=== PATIENT | female | born 1965 | race Caucasian/White ===

== ENCOUNTER → 2018-04-10 10:41 | Outpatient (CLI) | payer OTHER, SELFPAY ==
--- NOTE | 2018-04-10 | DI.MG.S_ITS ---
BILATERAL DIGITAL SCREENING MAMMOGRAM 3D/2D WITH CAD: 04/10/2018 CLINICAL: Routine screening. Family history of breast cancer. Comparison is made to exams dated: 07/14/2016 mammogram, 07/14/2015 mammogram, and 12/30/2014 mammogram - [facility]. The tissue of both breasts is heterogeneously dense. This may lower the sensitivity of mammography. Current study was also evaluated with a Computer Aided Detection (CAD) system. No significant masses, calcifications, or other findings are seen in either breast. There has been no significant interval change. IMPRESSION: NEGATIVE There is no mammographic evidence of malignancy. A 1 year screening mammogram is recommended. This exam was interpreted at Station ID: [id number]. NOTE: For mammograms, a report in lay terms will be sent to the patient. Approximately 15% of breast malignancies will not be visualized mammographically. In the management of a palpable breast mass, a negative mammogram must not discourage biopsy of a clinically suspicious lesion. Electronically Signed By: Leydi benton/jasson:04/10/2018 12:22:09 letter sent: Normal Exam ACR BI-RADS Category 1: Negative 3341F
== END ==
PROVIDERS: Visit Provider Family Medicine
DX: Z12.31 Encounter for screening mammogram for malignant neoplasm of breast (principal); Z80.3 Family history of malignant neoplasm of breast
CPT/HCPCS: 77063; 77067

== ENCOUNTER → 2018-06-28 15:20 | Outpatient (CLI) | payer OTHER, SELFPAY ==
--- NOTE | 2018-06-28 | DI.RAD.S_ITS ---
PROCEDURE: XR CHEST 2V INDICATIONS: Localized enlarged lymph nodes TECHNIQUE: 2 views of the chest were acquired. COMPARISON: None. FINDINGS: Surgical changes and devices: None. Lungs and pleura: No pleural effusions or pneumothorax. Lungs are clear. Mediastinum: Mediastinal contours are normal. Heart size is normal. Bones and chest wall: No suspicious bony abnormalities. Soft tissues appear unremarkable. IMPRESSION: No acute disease. Dictated by: Remigio Morrison M.D. on 06/28/2018 at 16:52 Approved by: Remigio Morrison M.D. on 06/28/2018 at 16:53
== END ==
PROVIDERS: PCP Family Medicine; Visit Provider Family Medicine
DX: R59.0 Localized enlarged lymph nodes (principal)
CPT/HCPCS: 71046

== ENCOUNTER → 2018-07-02 15:34 | Outpatient (CLI) | payer OTHER, SELFPAY ==
--- NOTE | 2018-07-02 | DI.CT.S_ITS ---
PROCEDURE: CT CHEST W CON INDICATIONS: Left sided CERVICAL LYMPHADENOPATHY TECHNIQUE: After the administration of intravenous contrast, 5 mm thick sections acquired from the pulmonary apices to the posterior costophrenic angles. 7 mm thick coronal and sagittal MIP reformats were acquired. For radiation dose reduction, the following was used: automated exposure control, adjustment of mA and/or kV according to patient size. COMPARISON: [facility], CT, CT SOFT TISSUE NECK W CON, 07/02/2018, 15:53. FINDINGS: Image quality: Excellent. Lungs and pleura: No acute air space opacities. No pleural effusions or pneumothorax. Central and peripheral airways are patent and normal in caliber. Mediastinum: Heart size is normal. No pericardial effusion. No mediastinal or hilar adenopathy by size criteria. Thoracic aorta and central pulmonary arteries are normal in size. Esophagus is normal in caliber. No hiatal hernia. Bones and chest wall: No suspicious bony lesions. No vertebral body compression fractures. There is bilateral axillary and left supraclavicular mild adenopathy by size criteria, with the maximal diameter of enlarged lymph nodes measuring up to 1.5 cm in short axis dimension, at the axillary areas. Thyroid gland appears normal where well visualized. Abdomen: Visualized upper abdominal solid organs appear normal. Note is made of several scattered water density cyst within the liver parenchyma. Upper abdominal bowel loops are normal in caliber. IMPRESSION: Shoddy adenopathy is present in each axilla and within the left supraclavicular fossa, in this patient with reported left cervical lymph adenopathy. No mediastinal or hilar adenopathy is found, however. No lung mass is present. Within the visualized upper abdomen scattered hepatic simple cysts are seen and no adenopathy is found. Dictated by: Keith Will M.D. on 07/02/2018 at 17:10 Approved by: Keith Will M.D. on 07/02/2018 at 17:15
--- NOTE | 2018-07-02 | DI.CT.S_ITS ---
PROCEDURE: CT SOFT TISSUE NECK W CON INDICATIONS: LEFT SIDED CERVICAL LYMPHADENOPATHY TECHNIQUE: After the administration of intravenous contrast, 3.0 mm axial sections acquired from the sella to the aortic arch. Additional oblique axial 3.0 mm sections acquired through the pharynx. 3 mm thick coronal and sagittal reformats were generated. For radiation dose reduction, the following was used: automated exposure control. COMPARISON: [facility], CT, CT CHEST W CON, 07/02/2018, 15:53. FINDINGS: Image quality: Excellent. Lymph nodes: Numerous, prominent bilateral level I, level II, level III, level IV in right level V neck lymph nodes are noted which do not be pathologic size criteria. Enlarged left level V lymph nodes are noted with largest node measuring 1.1 cm in short axis. Enlarged bilateral supraclavicular lymph nodes are noted with largest left supraclavicular lymph node measuring 1.4 cm and largest right supraclavicular lymph node measuring 1.3 cm in short axis. Vessels: Visualized vasculature appears patent. Neck spaces: The oropharynx, nasopharynx, and pharynx demonstrate no mucosal lesions. The vocal cords, false vocal cords, pyriform sinuses, epiglottis, vallecula, and tongue base all appear normal. Extramucosal spaces appear unremarkable. Glands: The parotid and submandibular glands appear normal. Thyroid gland contains a 7 mm hypoattenuating nodule in the left lobe. Miscellaneous: Visualized brain and orbits appear normal. Lung apices appear clear. Superficial soft tissues appear normal. Bones: No suspicious bony lesions. Mild spine degenerative disc disease and facet arthropathy. Visualized sinuses and mastoids appear unremarkable. IMPRESSION: 1. Enlarged bilateral supraclavicular lymph nodes concerning for malignancy including lymphoma or metastatic disease. 2. Numerous bilateral neck lymph nodes which did not meet pathologic size criteria, however the large number of prominent lymph nodes is suspicious for a neoplastic process. Dictated by: Porsha Willis MD, PhD on 07/02/2018 at 16:21 Approved by: Porsha Willis MD, PhD on 07/02/2018 at 16:30
== END ==
PROVIDERS: PCP Family Medicine; Visit Provider Family Medicine
DX: R59.0 Localized enlarged lymph nodes (principal); K76.89 Other specified diseases of liver
CPT/HCPCS: 70491; 71260; Q9967

== ENCOUNTER → 2018-07-03 10:30 | Outpatient (CLI) | payer OTHER, SELFPAY ==
--- NOTE | 2018-07-03 10:31 | DI.US.S_ITS ---
PROCEDURE: US SOFT TISSUE HEAD AND NECK INDICATIONS: PROMINENT BILATERAL LYMPH NODES TECHNIQUE: Real-time scanning was performed of the neck region of interest, with image documentation. COMPARISON: [facility], CT, CT SOFT TISSUE NECK W CON, 07/02/2018, 15:53. FINDINGS: Multiple enlarged cervical lymph nodes are present bilaterally. Two palpable lymph nodes on the left measure 1.8 x 0.5 x 1.0 cm and 2.2 x 0.8 x 1.1 cm. There is a 3.9 x 0.6 x 1.3 cm non-palpable lymph node in the left neck. A 3.1 x 1.0 x 1.7 cm lymph node is identified on the right side, which is nonpalpable. IMPRESSION: Bilateral enlarged cervical lymph nodes, which is a nonspecific finding and may be secondary to infectious, inflammatory or neoplastic etiology. Recommend clinical correlation and follow up. If clinically indicated, ultrasound guided percutaneous biopsy may be performed. Dictated by: Erica Murray M.D. on 07/03/2018 at 11:36 Approved by: Erica Murray M.D. on 07/03/2018 at 11:41
== END ==
PROVIDERS: PCP Family Medicine; Visit Provider Surgery
DX: R59.0 Localized enlarged lymph nodes (principal)
CPT/HCPCS: 76536

== ENCOUNTER → 2019-04-24 11:15 | Outpatient (CLI) | payer OTHER, SELFPAY ==
--- NOTE | 2019-04-24 | DI.MG.S_ITS ---
BILATERAL DIGITAL SCREENING MAMMOGRAM 3D/2D WITH CAD: 04/24/2019 CLINICAL: Routine screening. Family history of breast cancer. Comparison is made to exams dated: 04/10/2018 mammogram - [facility], 07/14/2016 mammogram, 07/14/2015 mammogram, and 12/30/2014 mammogram - [facility]. The tissue of both breasts is heterogeneously dense. This may lower the sensitivity of mammography. Current study was also evaluated with a Computer Aided Detection (CAD) system. No significant masses, calcifications, or other findings are seen in either breast. There has been no significant interval change. IMPRESSION: NEGATIVE There is no mammographic evidence of malignancy. A 1 year screening mammogram is recommended. This exam was interpreted at Station ID: [id number]. NOTE: For mammograms, a report in lay terms will be sent to the patient. Approximately 15% of breast malignancies will not be visualized mammographically. In the management of a palpable breast mass, a negative mammogram must not discourage biopsy of a clinically suspicious lesion. Electronically Signed By: Leo lopez/jasson:04/24/2019 18:27:34 letter sent: Normal Exam ACR BI-RADS Category 1: Negative 3341F
== END ==
PROVIDERS: PCP Family Medicine; Visit Provider Family Medicine
DX: Z12.31 Encounter for screening mammogram for malignant neoplasm of breast (principal); Z80.3 Family history of malignant neoplasm of breast
CPT/HCPCS: 77063; 77067

== ENCOUNTER → 2020-06-24 11:28 | Outpatient (CLI) | payer OTHER, SELFPAY ==
--- NOTE | 2020-06-24 | DI.MG.S_ITS ---
BILATERAL DIGITAL SCREENING MAMMOGRAM 3D/2D WITH CAD: 06/24/2020 CLINICAL: Routine screening. Family history of breast cancer. Comparison is made to exams dated: 04/24/2019 mammogram, 04/10/2018 mammogram - [facility], and 07/14/2016 mammogram - [facility]. The tissue of both breasts is heterogeneously dense. This may lower the sensitivity of mammography. Current study was also evaluated with a Computer Aided Detection (CAD) system. There are new enlarged nodes in the axillae. No significant masses, calcifications, or other findings are seen in either breast. IMPRESSION: INCOMPLETE: NEEDS ADDITIONAL IMAGING EVALUATION New bilateral axillary lymphadenopathy. Further evaluation is recommended with ultrasound of the axillae. This exam was interpreted at Station ID: [id number]. NOTE: For mammograms, a report in lay terms will be sent to the patient. Approximately 15% of breast malignancies will not be visualized mammographically. In the management of a palpable breast mass, a negative mammogram must not discourage biopsy of a clinically suspicious lesion. Electronically Signed By: Vazquez alaniz/:06/24/2020 13:20:12 letter sent: Need Ultrasound ACR BI-RADS Category 0: Incomplete 3340F
== END ==
PROVIDERS: PCP Family Medicine; Referring Provider Family Medicine; Visit Provider Family Medicine
DX: Z12.31 Encounter for screening mammogram for malignant neoplasm of breast (principal); Z80.3 Family history of malignant neoplasm of breast
CPT/HCPCS: 77063; 77067

== ENCOUNTER → 2020-07-06 11:40 | Outpatient (CLI) | payer OTHER, SELFPAY ==
--- NOTE | 2020-07-06 | DI.US.S_ITS ---
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 No lumps, nl mammo 06-24-2020. Comparison is made to exams dated: 06/24/2020 mammogram, 04/24/2019 mammogram, 04/10/2018 mammogram - [facility], and 07/14/2016 mammogram - [facility]. Color flow and real-time ultrasound of the right breast were performed. Pat scale images of the real-time examination were reviewed. There are multiple oval enlarged lymph nodes, the largest measuring 4.9 cm in length with eccentric cortical thickening measuring up to 6mm, in the right axillary tail. Color flow imaging demonstrates that there is no increased vascularity present. IMPRESSION: SUSPICIOUS OF MALIGNANCY The multiple oval enlarged lymph nodes with eccentric cortical thickening are consistent with enlarged, possibly pathologic lymph nodes and are suspicious of malignancy, particularly given history of lymphoma. An oncologic consultation is recommended. This exam was interpreted at Station ID: [id number]. Electronically Signed By: Em weathers/:07/06/2020 17:10:18 letter sent: Clinical Evaluation Ultrasound BI-RADS: 4 Suspicious for malignancy
--- NOTE | 2020-07-06 | DI.US.S_ITS ---
ULTRASOUND OF LEFT AXILLA: 07/06/2020 CLINICAL: Left axilla u/s for Non-Hodgkins Small Lymphatic Lymphoma. No lumps, normal mammo 06-24-2020. Comparison is made to exams dated: 06/24/2020 mammogram, 04/24/2019 mammogram, 04/10/2018 mammogram - [facility], and 07/14/2016 mammogram - [facility]. Color flow and real-time ultrasound of the left axilla were performed. Pat scale images of the real-time examination were reviewed. There are multiple irregular enlarged lymph nodes with eccentric cortical thickening in the left axillary tail. THe largest node measures 6.7 cm in length with a cortex measuring up to 8mm. These irregular enlarged lymph nodes display fatty hilum and no increased vascularity. IMPRESSION: SUSPICIOUS OF MALIGNANCY The multiple irregular enlarged lymph nodes are suspicious of malignancy. An oncologic consultation is recommended. Findings were conveyed to the patient at time of exam. This exam was interpreted at Station ID: [id number]. Electronically Signed By: Em weathers/:07/06/2020 17:13:37 letter sent: Clinical Evaluation Ultrasound BI-RADS: 4 Suspicious for malignancy
== END ==
PROVIDERS: PCP Family Medicine; Referring Provider Family Medicine; Visit Provider Family Medicine
DX: R59.0 Localized enlarged lymph nodes (principal)
CPT/HCPCS: 76882